=== PATIENT | male | born 1975 | race American Indian/Alaskan Native ===

== ENCOUNTER 2019-06-09 01:47 | Emergency (ER) | payer BC ==
--- NOTE | 2019-06-09 02:36 | Emergency Department Report ---
ED Extremity Problem HPI - General Chief complaint: Extremity Injury, Lower Stated complaint: BROKEN SANTI Time Seen by Provider: 06/09/19 02:25 Source: patient Mode of arrival: Ambulatory Limitations: No Limitations - History of Present Illness Initial comments: Patient is a 44-year-old male who presents the emergency room with complaints of scratching his right lower extremity with his fingernail which caused bleeding to occur just prior to arrival. States the bleeding lasted approximately 5 minutes. He states that he has multiple varicose veins in his lower extremities and believes he scratched over an area where he had one. He denies any bleeding at all currently. he denies any pain in his legs. pt states that he has chronic swelling in his bilateral lower extremities after standing at work all day. He states when he wakes up in the morning the swelling has gone away. He states she has a past medical history of hypertension but is not taking his medication. pt does not have a primary care doctor. - Related Data Previous Rx's Medication Instructions Recorded Last Taken Type Lisinopril/Hydrochlorothiazide 1 tab PO QDAY #30 tablet 04/06/14 Unknown Rx [Zestoretic 20-25 mg] Allergies Allergy/AdvReac Type Severity Reaction Status Date / Time No Known Allergies Allergy Verified 04/06/14 06:07 ED Review of Systems ROS: Stated complaint: BROKEN SANTI Other details as noted in HPI Comment: All other systems reviewed and negative ED Past Medical Hx - Past Medical History Previous Medical History?: Yes Hx Hypertension: Yes (not any medication) - Surgical History Past Surgical History?: No - Social History Smoking Status: Never Smoker Substance Use Type: None - Medications Home Medications: Home Medications Medication Instructions Recorded Confirmed Last Taken Type Lisinopril/Hydrochlorothiazide 1 tab PO QDAY #30 tablet 04/06/14 Unknown Rx [Zestoretic 20-25 mg] ED Physical Exam - General Limitations: No Limitations General appearance: alert, in no apparent distress - Head Head exam: Present: atraumatic, normocephalic - Eye Eye exam: Present: normal appearance - ENT ENT exam: Present: mucous membranes moist - Extremities Exam Extremities exam: Present: other (small abrasion to the right lower extremity, no bleeding, non pitting bilateral lower extremity edema, no calf tenderness, appears to have chronic venous changes of the BLE with hyperpigmentation and varicose veins, 2+ dp pulse) - Neurological Exam Neurological exam: Present: alert, oriented X3 - Psychiatric Psychiatric exam: Present: normal affect, normal mood - Skin Skin exam: Present: warm, dry ED Course Vital Signs 06/09/19 06/09/19 01:52 03:23 Temperature 97.8 F Pulse Rate 111 H 98 H Respiratory 20 18 Rate Blood Pressure 177/116 Blood Pressure 130/76 [Right] O2 Sat by Pulse 95 99 Oximetry ED Medical Decision Making - Lab Data Vital Signs 06/09/19 06/09/19 01:52 03:23 Temperature 97.8 F Pulse Rate 111 H 98 H Respiratory 20 18 Rate Blood Pressure 177/116 Blood Pressure 130/76 [Right] O2 Sat by Pulse 95 99 Oximetry - Medical Decision Making Patient is a 44-year-old male who presents the emergency room with complaints of scratching his right lower extremity with his fingernail which caused bleeding to occur just prior to arrival. States the bleeding lasted approximately 5 minutes. He states that he has multiple varicose veins in his lower extremities and believes he scratched over an area where he had one. He denies any bleeding at all currently. he denies any pain in his legs. pt states that he has chronic swelling in his bilateral lower extremities after standing at work all day. He states when he wakes up in the morning the swelling has gone away. He states she has a past medical history of hypertension but is not taking his medication. pt does not have a primary care doctor. vitals from triage with elevated blood pressure and tachycardia which significantly improved with no intervention with repeat in the emergency department. on exam: small abrasion to the right lower extremity, no bleeding, non pitting bilateral lower extremity edema, no calf tenderness, appears to have chronic venous changes of the BLE with hyperpigmentation and varicose veins, 2+ dp pulse. advised pt to please elevate the legs. May wear compression stockings while working. please follow- up with [facility] for your legs. Please follow-up with a primary care doctor due to your elevated blood pressure. Please keep a blood pressure log and eat a low sodium diet. Return to the emergency room for any new or worsening symptoms. Critical care attestation.: If time is entered above; I have spent that time in minutes in the direct care of this critically ill patient, excluding procedure time. ED Disposition Clinical Impression: Abrasion, Varicose veins of both legs with edema, Elevated blood pressure reading Disposition: DC-01 TO HOME OR SELFCARE Is pt being admited?: No Does the pt Need Aspirin: No Condition: Stable Instructions: Varicose Veins (ED), Leg Edema (ED), Low Sodium Diet (ED), Hypertension (ED) Additional Instructions: Please elevate the legs. May wear compression stockings while working. please follow-up with [facility] for your legs. Please follow-up with a primary care doctor due to your elevated blood pressure. Please keep a blood pressure log and eat a low sodium diet. Return to the emergency room for any new or worsening symptoms. Referrals: ODESSA BARFIELD MD [Staff Physician] - 3-5 Days ANASTASIA GARCIA MD [Staff Physician] - 3-5 Days [facility] [Provider Group] - 3-5 Days [facility] [Provider Group] - 3-5 Days Time of Disposition: 02:37 Print Language: SLOV[place]
[2019-06-09 03:24] VITALS: BP 130/76
== END 2019-06-09 02:55 | disposition home or self-care (01) ==
LOC: ED 01:47
DX: S80.811A Abrasion, right lower leg, initial encounter (principal); I83.93 Asymptomatic varicose veins of bilateral lower extremities; I10 Essential (primary) hypertension; Z79.899 Other long term (current) drug therapy; W50.4XXA Accidental scratch by another person, initial encounter; Y93.89 Activity, other specified; Y92.89 Other specified places as the place of occurrence of the external cause; Y99.8 Other external cause status